=== PATIENT | male | born 1985 | race African-American/Black ===

== ENCOUNTER 2017-10-24 18:42 | Emergency (ER) | payer MEDICAID ==
[~2017-10-24] VITALS: Ht 185.4 cm; Wt 108.9 kg
[2017-10-24 19:00] VITALS: BP 145/95
== END 2017-10-24 20:18 | disposition home or self-care (01) ==
LOC: ER 18:42
DX: S86.892A Other injury of other muscle(s) and tendon(s) at lower leg level, left leg, initial encounter (principal); E11.9 Type 2 diabetes mellitus without complications; X58.XXXA Exposure to other specified factors, initial encounter; Y93.89 Activity, other specified; Y92.89 Other specified places as the place of occurrence of the external cause; Y99.8 Other external cause status
CPT/HCPCS: 73590